=== PATIENT | female | born 1985 | race Two or more races ===

== ENCOUNTER 2024-06-28 05:57 | Emergency (ER) | payer BC, OTHER ==
[~2024-06-28] VITALS: Ht 165.1 cm; Wt 80.0 kg
--- NOTE | 2024-06-28 06:26 | ED.PDOC ---
History of Present Illness HPI Comments 39F with a history of migraines presents with 4 days of gradual onset and left- sided sharp 10/10 headache associated with multiple episodes of vomiting. Patient reports she has had headaches in the past and saw a doctor for it however they did not seem so concerned about it. States she has never had a headache this severe. Usually her headaches have resolved with the Excedrin. She denies any sick contacts photophobia phonophobia chance of sick contacts or recent travel. Chief Complaint: Headache Time Seen by MD: 06:18 Allergies: Coded Allergies: NO KNOWN ALLERGIES (Unverified , 06/28/24) All Other Systems: Reviewed and Negative Physical Exam General Appearance: Mild Distress HEENT: Normal ENT Inspection Neck: Normal Inspection Respiratory: No Respiratory Distress Cardiovascular: No Edema Breast Exam: Deferred Gastrointestinal: NOT DONE Genitalia: Deferred Pelvic: Deferred Rectal: Deferred Extremities: Normal range of motion Neurologic: Alert, No Motor Deficits, No Sensory Deficits Cerebellar Function: Normal Reflexes: NOT DONE Skin: Normal Color Lymphatic: NOT DONE Was a procedure done? Was a procedure done?: No Differential Dx Considerations may include: Migraine, CVA, ACS, tension headache X-Ray, Labs, Meds, VS Vital Signs Date Time Temp Pulse Resp B/P (MAP) Pulse Ox O2 Delivery O2 Flow Rate FiO2 06/28/24 06:35 79 13 133/89 (104) 98 06/28/24 06:35 79 13 98 Room Air* 0 21 06/28/24 05:57 98.4 74 17 136/81 (99) 97 98.4 Current Medications Medications (Trade) Dose Ordered Sig/Becca Route Start Time Stop Time Status Last Admin Sodium Chloride 1,000 ml @ 1,000 mls/hr Q1H ONCE IV 06/28/24 06:30 06/28/24 07:29 DC 06/28/24 06:37 Metoclopramide HCl (Reglan Injection) 10 mg ONCE ONCE IV 06/28/24 06:30 06/28/24 06:31 DC 06/28/24 06:38 Ketorolac Tromethamine (Toradol Injection) 15 mg ONCE ONCE IV 06/28/24 06:30 06/28/24 06:31 DC 06/28/24 06:38 Acetaminophen (Tylenol Tablet) 650 mg ONCE ONCE PO 06/28/24 06:30 06/28/24 06:31 DC 06/28/24 06:39 Dexamethasone Sodium Phosphate (Decadron Injection) 10 mg ONCE ONCE IV 06/28/24 06:30 06/28/24 06:31 DC 06/28/24 06:38 Magnesium Sulfate/ Dextrose 100 ml @ 100 mls/hr Q1H IV 06/28/24 06:30 06/28/24 08:29 DC 06/28/24 07:52 Time of 1ST Reevaluation: 06:26 Reevaluation 1ST: Unchanged Patient Education/Counseling: Diagnosis, Treatment Family Education/Counseling: No Family Present Departure 1 Departure Time of Disposition: 09:26 (Patient is feeling significantly better. She reports her migraine has resolved. We will discharge patient home with outpatient follow up) Impression: Primary Impression: Migraine Qualified Codes: G43.109 - Migraine with aura, not intractable, without status migrainosus Disposition: 01 HOME / SELF CARE / HOMELESS Condition: Stable Additional Instructions: You likely had a migraine. You received medications in the ER. You can take tylenol and motrin as needed for pain. You should stay well rested and well hydrated. It is important to follow up with your regular doctor within one week. If your symptoms worsen or you have any other concerns then please return to the ER. Discharged With: Self Critical Care Note Critical Care Time?: No Stability Stability form required: No Heart Score Heart Score: Heart Score Response (Comments) Value History N/A 0 EKG N/A 0 Age N/A 0 Risk Factors N/A 0 Troponin N/A 0 Total 0 LUIGI VÁZQUEZ MD June 28, 2024 06:26
[2024-06-28 06:35] VITALS: PULSE 79; RESP 13; O2SAT 98
[2024-06-28] MEDS: SODIUM CHLORIDE 0.9% 1,000 ML IV ONE (06:37)
[2024-06-28] MEDS: METOCLOPRAMIDE HCL 5MG/ml INJ 2ml VIAL IV ONE (06:38)
[2024-06-28] MEDS: DexAMETHasone SOD PHOS 10MG/1ML VIAL INJ IV ONE (06:38)
[2024-06-28] MEDS: KETOROLAC TROMETH 30 MG/ML 1ML VIAL IV ONE (06:38)
[2024-06-28] MEDS: ACETAMINOPHEN 325 MG TAB PO ONE (06:39)
[2024-06-28] MEDS: MAGNESIUM SULFATE 1GM/100ML 100 ML IV SCH (07:52)
[2024-06-28 09:39] VITALS: BP 141/84; PULSE 77; RESP 16; TEMP 97.5; O2SAT 96
== END 2024-06-28 09:40 | disposition home or self-care (01) ==
LOC: ER 05:57
DX: G43.909 Migraine, unspecified, not intractable, without status migrainosus (principal)
CPT/HCPCS: 96361; 96365; 96375; 99284; J1100; J1885; J2765; J3475; J7030; 96374

== ENCOUNTER 2024-06-30 09:48 | Inpatient (IN) | payer BC ==
[~2024-06-30] VITALS: Ht 165.1 cm; Wt 79.5 kg
[2024-06-30 10:24] LABS: Basophils # (auto) 0 10 ^3/uL (0-0.2); Eosinophils # (auto) 0 10 ^3/uL (0-0.8); Hemoglobin 12.4 g/dL (12.2-16.2); Mean Corpuscular Hemoglobin 25.1 pg (28.0-32.0); Monocytes # (auto) 0.4 10 ^3/uL (0-1.3); Monocytes % (auto) 8.7 % (0.0-12.0); Neutrophils # (auto) 2.6 10 ^3/uL (1.6-8.6); Red Blood Cells 4.93 10^6/uL (4.0-5.20); White Blood Cell 4.7 10^3/uL (4.4-10.8)
[2024-06-30 10:25] VITALS: PULSE 67; RESP 16; O2SAT 96
[2024-06-30 10:26] LABS: Basophils % (auto) 0.8 % (0.0-2.0); Eosinophils % (auto) 0.7 % (0.0-7.0); Hematocrit 36.6 % (36.0-46.0); Lymphocytes # (auto) 1.6 10 ^3/uL (0.4-5.4); Lymphocytes % (auto) 35.2 % (10.0-50.0); Mean Corpuscular Hgb Conc. 33.8 g/dL (32.0-36.0); Mean Corpuscular Volume 74.2 fL (80.0-100.0); Neutrophils % (auto) 54.6 % (37.0-80.0); Nucleated Red Blood Cells % 0.2 %; Platelet Count (auto) 239 10^3/uL (140-450); Red Cell Distribution Width 15.1 % (11.8-14.3)
[2024-06-30 10:36] LABS: Chloride 107 mmol/L (98-107); Potassium 4.1 mmol/L (3.5-5.1); Sodium 141 mmol/L (136-145)
[2024-06-30 10:37] LABS: Anion Gap 7 (5-15); Calcium 9.6 mg/dL (8.7-10.4); Carbon Dioxide 27 mmol/L (20-31)
[2024-06-30] MEDS: ONDANSETRON HCL 4 MG/2 ML VIAL IV ONE (10:37)
[2024-06-30] MEDS: MORPHINE SULFATE 4 MG/ML SYR/VIAL IV ONE (10:38)
[2024-06-30 10:42] LABS: Blood Urea Nitrogen 9 mg/dL (9-23); Glucose 75 mg/dL (74-106)
--- NOTE | 2024-06-30 10:48 | ED.PDOC ---
History of Present Illness HPI Comments 39 y/o F, with PMHx of DM and HTN presents to the ED for CC of headache. Patient states, that she has been experiencing a generalized headache with associated symptoms of nausea and vomiting x6days. Patient reports, that she was seen [facility]/24 and received pain medication for the headache which "took the edge off" however, once medication wore off symptoms worsened. Patient relays, that she has an appointment with a neurologist on 07/13/24 but pain is unbearable. Patient denies dizziness, chills, sweats, or body-aches. No other symptoms or modifying factors present at this time. Chief Complaint: Headache Time Seen by MD: 10:37 Primary Care Provider: RENÉE Shaw Notes: Nurses Notes, Medications, Allergies Allergies: Coded Allergies: NO KNOWN ALLERGIES (Unverified , 06/28/24) Information Source: Patient Mode of Arrival: Wheelchair Severity: Moderate Timing: Days Duration: Since onset Prehospital treatment: None Past Medical History PAST MEDICAL HISTORY: DM, HTN Surgical History: Surgical History (Other): RIGHT SHOULDER, GASTRIC BYPASS [employer] History: Unknown Family History Family History: Unknown Social History Smoker: Non-Smoker Alcohol: Denies ETOH Use Drugs: Denies Drug Use Lives In: Home Constitutional: denies: chills, diaphoresis, fatigue, fever, malaise, sweats, weakness, others EENTM: denies: blurred vision, double vision, ear bleeding, ear discharge, ear drainage, ear pain, ear ringing, eye pain, eye redness, hearing loss, mouth pain, mouth swelling, nasal discharge, nose bleeding, nose congestion, nose pain, photophobia, tearing, throat pain, throat swelling, voice changes, others Respiratory: denies: cough, hemoptysis, orthopnea, SOB at rest, shortness of breath, SOB with excertion, stridor, wheezing, others Cardiovascular: denies: chest pain, dizzy spells, diaphoresis, Dyspnea on exertion, edema, irregular heart beat, left arm pain, lightheadedness, palpitations, PND, syncope, others Gastrointestinal: reports: nausea, vomiting; denies: abdomen distended, abdominal pain, blood streaked bowels, constipated, diarrhea, dysphagia, difficulty swallowing, hematemesis, melena, poor appetite, poor fluid intake, rectal bleeding, rectal pain, others Genitourinary: denies: abnormal vagina bleeding, burning, dyspareunia, dysuria, flank pain, frequency, hematuria, incontinence, pain, , vagina discharge, urgency, others Neurological: reports: headache; denies: dizziness, fainting, left sided numbness, left sided weakness, numbness, paresthesia, pre-existing deficit, right sided numbness, right sided weakness, seizure, speech problems, tingling, tremors, weakness, others Musculoskeletal: denies: back pain, gout, joint pain, joint swelling, muscle pain, muscle stiffness, neck pain, others Integumetry: denies: bruises, change in color, change in hair/nails, dryness, laceration, lesions, lumps, rash, wounds, others Allergic/Immunocompromised: denies: Difficulty Healing, Frequent Infections, Hives, Itching, others Hematologic/Lymphatic: denies: anemia, blood clots, easy bleeding, easy bruising, swollen glands, others Endocrine: denies: excessive hunger, excessive sweating, excessive thirst, excessive urination, flushing, intolerance to cold, intolerance to heat, unexplained weight gain, unexplained weight loss, others Psychiatric: denies: anxiety, bipolar disorder, depression, hopeless, panic disorder, schizophrenia, sleepless, suicidal, others All Other Systems: Reviewed and Negative Physical Exam General Appearance: Moderate Distress HEENT: Normal ENT Inspection, Pharynx Normal, TMs Normal Neck: Full Range of Motion, Non-Tender, Normal, Normal Inspection Respiratory: Chest Non-Tender, Lungs Clear, No Accessory Muscle Use, No Respiratory Distress, Normal Breath Sounds Cardiovascular: No Edema, No JVD, No Murmur, No Gallop, Normal Peripheral Pulses, Regular Rate/Rhythm Breast Exam: Deferred Gastrointestinal: No Organomegaly, Non Tender, No Pulsatile Mass, Normal Bowel Sounds, Soft Genitalia: Deferred Pelvic: Deferred Rectal: Deferred Extremities: No calf tenderness, Normal capillary refill, Normal inspection, Normal range of motion, Non-tender, No pedal edema Musculoskeletal : Apperance: Normal Neurologic: Alert, No Motor Deficits, No Sensory Deficits Cerebellar Function: NOT DONE Reflexes: NOT DONE Skin: Dry, Normal Color, Warm Peripheral Pulses: 3+ Radial (R), 3+ Radial (L) Lymphatic: No Adenopathy Was a procedure done? Was a procedure done?: No Differential Dx Considerations may include: MIGRAINE HEADACHE, CLUSTER HEADACHE, ELECTROLYTE IMBALANCE X-Ray, Labs, Meds, VS Vital Signs Date Time Temp Pulse Resp B/P (MAP) Pulse Ox O2 Delivery O2 Flow Rate FiO2 06/30/24 11:03 98.0 61 16 141/78 (99) 98 98.0 06/30/24 10:38 67 16 126/83 06/30/24 10:25 98.0 67 16 126/83 (97) 96 98.0 06/30/24 10:25 67 16 96 Room Air* 0 21 06/30/24 10:18 97.8 72 17 138/89 (105) 98 97.8 Lab Test 06/30/24 10:40 06/30/24 10:17 Range/Units Urine Color Light-yellow Yellow Urine Clarity Clear Clear Urine pH 7.0 5.0-9.0 Urine Specific [place] 1.019 1.001-1.035 Urine Protein Negative Negative Urine Ketones Negative Negative Urine Blood Negative Negative /uL Urine Nitrite Negative Negative Urine Bilirubin Negative Negative Urine Urobilinogen 2 H Negative mg/dL Urine Leukocyte Esterase Negative Negative /uL Urine RBC 2 0 - 4 /hpf Urine Microscopic WBC 1 0-5 /HPF Urine Squamous Epithelial Cells Few <5 /hpf Urine Bacteria Few H None Seen /hpf Urine Glucose Normal Normal mg/dL White Blood Count 4.7 4.4-10.8 10^3/uL Red Blood Count 4.93 4.0-5.20 10^6/uL Hemoglobin 12.4 12.2-16.2 g/dL Hematocrit 36.6 36.0-46.0 % Mean Corpuscular Volume 74.2 L 80.0-100.0 fL Mean Corpuscular Hemoglobin 25.1 L 28.0-32.0 pg Mean Corpuscular Hemoglobin Concent 33.8 32.0-36.0 g/dL Red Cell Distribution Width 15.1 H 11.8-14.3 % Platelet Count 239 140-450 10^3/uL Mean Platelet Volume 7.6 6.9-10.8 fL Neutrophils (%) (Auto) 54.6 37.0-80.0 % Lymphocytes (%) (Auto) 35.2 10.0-50.0 % Monocytes (%) (Auto) 8.7 0.0-12.0 % Eosinophils (%) (Auto) 0.7 0.0-7.0 % Basophils (%) (Auto) 0.8 0.0-2.0 % Neutrophils # (Auto) 2.6 1.6-8.6 10 ^3/uL Lymphocytes # (Auto) 1.6 0.4-5.4 10 ^3/uL Monocytes # (Auto) 0.4 0-1.3 10 ^3/uL Eosinophils # (Auto) 0 0-0.8 10 ^3/uL Basophils # (Auto) 0 0-0.2 10 ^3/uL Nucleated Red Blood Cells 0.2 % Sodium Level 141 136-145 mmol/L Potassium Level 4.1 3.5-5.1 mmol/L Chloride Level 107 98-107 mmol/L Carbon Dioxide Level 27 20-31 mmol/L Anion Gap 7 5-15 Blood Urea Nitrogen 9 9-23 mg/dL Creatinine 0.69 0.550-1.02 mg/dL Glomerular Filtration Rate Calc 112 >90 mL/min BUN/Creatinine Ratio 13.0 10.0-20.0 Serum Glucose 75 74-106 mg/dL Calcium Level 9.6 8.7-10.4 mg/dL Current Medications Medications (Trade) Dose Ordered Sig/Becca Route Start Time Stop Time Status Last Admin Morphine Sulfate 4 mg ONCE ONCE IV 06/30/24 10:15 06/30/24 10:16 DC 06/30/24 10:38 Ondansetron HCl (Zofran) 4 mg ONCE ONCE IV 06/30/24 10:15 06/30/24 10:16 DC 06/30/24 10:37 [place] [address] Ph: [phone] DIAGNOSTIC IMAGING Diagnostic Imaging Report : [id number] Signed PATIENT: LENA LEONE ACCT: [id number] UNIT: [id number] : 1985 LOC: ER ROOM / BED: / AGE / SEX: 39 / F ADM STATUS: REG ER SERVICE 1003 ORDERING PHYSICIAN: PHILLIP COMBS MD PROCEDURE(s): HWOCT - HEAD WITHOUT CONTRAST REASON: headache ORDER NUMBER(s): [id number], ACCESSION NUMBER(s): [id number] EXAM: CT HEAD WITHOUT CONTRAST INDICATION: headache TECHNIQUE: CT of the head without intravenous contrast. Radiation Dose Information: CT Dose: CTDI volume is 53.06 mGy. Dose-length product is 850.66 mGy*cm The dose indicators for CT are the volume Computed Tomography (CT) Dose Index (CTDIvol) and the Dose Length Product (DLP), and are measured in units of mGy and mGy-cm, respectively. These indicators are not patient dose, but values generated from the CT scanner acquisition factors. The report includes radiation exposure data for exposures received during this examination. COMPARISON: None FINDINGS: There is no evidence of acute intracranial hemorrhage, extra-axial collection, mass effect, midline shift, herniation or hydrocephalus. The ventricles, sulci and cisterns are age appropriate. The anglin-white differentiation is intact. Patchy periventricular and subcortical white matter hypoattenuation is nonspecific but may be related to small vessel ischemic disease. The visualized paranasal sinuses and mastoid air cells are clear. The surrounding soft tissues and osseous structures are unremarkable. IMPRESSION: No acute intracranial abnormality. ATED BY: LILA MONCADA MD DICTATED DATE/TIME: 06/30/24 1054 SIGNED BY: LILA MONCADA MD SIGNED DATE/TIME: 06/30/24 1054 CC: Patient alert. Complaining of headache. Vitals stable. Was seen here with the same symptom few days ago. Continues to have headache. CT of the head reviewed does not show any acute changes. Was given morphine. Was given Zofran. Explained to the patient she possibly need MRI. Neurology consultation. Reviewed her previous visit. Continue monitoring. Time of 1ST Reevaluation: 11:07 Reevaluation 1ST: Improved Patient Education/Counseling: Diagnosis, Treatment Family Education/Counseling: No Family Present Departure 1 Departure Time of Disposition: 10:59 Impression: Primary Impression: Migraine Qualified Codes: G43.901 - Migraine, unspecified, not intractable, with status migrainosus Disposition: ADMITTED INPATIENT Admit to: Med Surg Condition: Guarded Critical Care Note Critical Care Time?: No Stability Stability form required: No Heart Score Heart Score: Heart Score Response (Comments) Value History N/A 0 EKG N/A 0 Age N/A 0 Risk Factors N/A 0 Troponin N/A 0 Total 0 I personally scribed for PHILLIP COMBS MD ([email or web address]) on 06/30/24 at 10:48. Electronically submitted by Jocelyn Leyva ([email or web address]). I personally scribed for PHILLIP COMBS MD ([email or web address]) on 06/30/24 at 11:24. Electronically submitted by Jocelyn Leyva ([email or web address]). PHILLIP COMBS MD June 30, 2024 10:48
--- NOTE | 2024-06-30 10:56 | DVH ---
EXAM: CT HEAD WITHOUT CONTRAST INDICATION: headache TECHNIQUE: CT of the head without intravenous contrast. Radiation Dose Information: CT Dose: CTDI volume is 53.06 mGy. Dose-length product is 850.66 mGy*cm The dose indicators for CT are the volume Computed Tomography (CT) Dose Index (CTDIvol) and the Dose Length Product (DLP), and are measured in units of mGy and mGy-cm, respectively. These indicators are not patient dose, but values generated from the CT scanner acquisition factors. The report includes radiation exposure data for exposures received during this examination. COMPARISON: None FINDINGS: There is no evidence of acute intracranial hemorrhage, extra-axial collection, mass effect, midline s hift, herniation or hydrocephalus. The ventricles, sulci and cisterns are age appropriate. The anglin-white differentiation is intact. Patchy periventricular and subcortical white matter hypoattenuation is nonspecific but may be related to small vessel ischemic disease. The visualized paranasal sinuses and mastoid air cells are clear. The surrounding soft tissues and osseous structures are unremarkable. IMPRESSION: No acute intracranial abnormality.
[2024-06-30 11:20] LABS: Urine Bacteria FEW /hpf (None Seen); Urine Blood Negative /uL (Negative); Urine Clarity Clear (Clear); Urine Color Light-Yellow (Yellow); Urine Protein, UAD Negative (Negative); Urine Specific Gravity 1.019 (1.001-1.035); Urine Squamous Epithelial Cell FEW /hpf (<5); Urine Urobilinogen 2 mg/dL (Negative); Urine WBC 1 /HPF (0-5)
[2024-06-30] MEDS ORDERED: SERT-160 PO (12:27)
[2024-06-30] MEDS ORDERED: OMEP1CAP70 PO (12:27)
[2024-06-30] MEDS ORDERED: ROSU20TA56 PO (12:27)
[2024-06-30] MEDS ORDERED: DEXTROSE (50%) 50ML SYRG IV PRN (12:30)
[2024-06-30] MEDS ORDERED: ACETAMINOPHEN 325 MG TAB PO PRN (12:30)
--- NOTE | 2024-06-30 12:35 | DVHHP2 ---
History of Present Illness Reason for Visit: Headache History of Present Illness Kathy Munoz is a 39-year-old female with past medical history of hypertension, diabetes, , right shoulder replacement, and gastric bypass who presents to the ED with intractable headache with nausea and vomiting x6 days. Patient states that she woke up with excruciating pain 10/10 on the left parietal side and constant in nature. She states that has been ongoing day and night without any relief. She did report that she took Excedrin, Tylenol, [place], and morphine with no success. She also reports that she was in the urgent care took Toradol with to our relief that was minimal and the pain restarted and continued on. Patient denies any recent trauma or injury, recent sick contacts, recent travels, recent ingestion of spoiled food, chest pain, shortness of breath, fever, chills, lightheadedness, weakness, dizziness, abdominal pain, nausea, vomiting, or diarrhea. Patient reports that she vapes, uses marijuana, and drinks occasionally. Angel is at the chair side. Cardiovascular: HTN Endocrine: Diabetes Past Surgical History: , Other (Right shoulder replacement and gastric bypass) Family History: Other (Mom with heart disease and diabetes, and dad ) Smoke: Quit (Vapes) ALCOHOL: occassional Drugs: Marijuana Lives: with Family Domestic Violence: Neg Review of Systems Constitutional: Yes: Other (Headache) Gastrointestinal: Nausea, Vomiting Allergies: Coded Allergies: NO KNOWN ALLERGIES (Unverified , 06/28/24) Medications Current Medications Medications Dose Ordered Sig/Becca Route Start Time Stop Time Status Last Admin Dose Admin Diagnostic Test (Pha) 1 strip ACHS 06/30/24 17:00 Insulin Human Regular ACHS SC 06/30/24 17:00 Dextrose 50 ml UD PRN IV 06/30/24 12:30 Acetaminophen/ Hydrocodone Bitart 1 tab Q4HP PRN PO 06/30/24 12:30 Ondansetron HCl 4 mg Q4HP PRN IV 06/30/24 12:30 Acetaminophen 650 mg Q6HP PRN PO 06/30/24 12:30 Morphine Sulfate 2 mg Q4HPRN PRN IV 06/30/24 12:30 UNV Exam Vital Signs Vital Signs Date Time Temp Pulse Resp B/P (MAP) Pulse Ox O2 Delivery O2 Flow Rate FiO2 06/30/24 11:03 98.0 61 16 141/78 (99) 98 98.0 06/30/24 10:25 Room Air* 0 21 General Appearance: Alert, Oriented X3, Cooperative, No acute distress HEENT: Atraumatic, PERRLA, EOMI, Mucous membr. moist/pink Respiratory: Clear to auscultation, Normal air movement Cardiovascular: Regular rate, Normal S1, Normal S2 Abdominal: Normal bowel sounds, Soft Extremities: No clubbing, No cyanosis, No edema, Normal pulses Skin: No significant lesion Neuro: Normal speech, Strength at 5/5 X4 ext, Normal tone, Sensation intact Psych/Mental Status: Mental status NL, Mood NL Labs/Xrays Labs Test 06/30/24 10:40 06/30/24 10:17 Range/Units Urine Color Light-yellow Yellow Urine Clarity Clear Clear Urine pH 7.0 5.0-9.0 Urine Specific [place] 1.019 1.001-1.035 Urine Protein Negative Negative Urine Ketones Negative Negative Urine Blood Negative Negative /uL Urine Nitrite Negative Negative Urine Bilirubin Negative Negative Urine Urobilinogen 2 H Negative mg/dL Urine Leukocyte Esterase Negative Negative /uL Urine RBC 2 0 - 4 /hpf Urine Microscopic WBC 1 0-5 /HPF Urine Squamous Epithelial Cells Few <5 /hpf Urine Bacteria Few H None Seen /hpf Urine Glucose Normal Normal mg/dL White Blood Count 4.7 4.4-10.8 10^3/uL Red Blood Count 4.93 4.0-5.20 10^6/uL Hemoglobin 12.4 12.2-16.2 g/dL Hematocrit 36.6 36.0-46.0 % Mean Corpuscular Volume 74.2 L 80.0-100.0 fL Mean Corpuscular Hemoglobin 25.1 L 28.0-32.0 pg Mean Corpuscular Hemoglobin Concent 33.8 32.0-36.0 g/dL Red Cell Distribution Width 15.1 H 11.8-14.3 % Platelet Count 239 140-450 10^3/uL Mean Platelet Volume 7.6 6.9-10.8 fL Neutrophils (%) (Auto) 54.6 37.0-80.0 % Lymphocytes (%) (Auto) 35.2 10.0-50.0 % Monocytes (%) (Auto) 8.7 0.0-12.0 % Eosinophils (%) (Auto) 0.7 0.0-7.0 % Basophils (%) (Auto) 0.8 0.0-2.0 % Neutrophils # (Auto) 2.6 1.6-8.6 10 ^3/uL Lymphocytes # (Auto) 1.6 0.4-5.4 10 ^3/uL Monocytes # (Auto) 0.4 0-1.3 10 ^3/uL Eosinophils # (Auto) 0 0-0.8 10 ^3/uL Basophils # (Auto) 0 0-0.2 10 ^3/uL Nucleated Red Blood Cells 0.2 % Sodium Level 141 136-145 mmol/L Potassium Level 4.1 3.5-5.1 mmol/L Chloride Level 107 98-107 mmol/L Carbon Dioxide Level 27 20-31 mmol/L Anion Gap 7 5-15 Blood Urea Nitrogen 9 9-23 mg/dL Creatinine 0.69 0.550-1.02 mg/dL Glomerular Filtration Rate Calc 112 >90 mL/min BUN/Creatinine Ratio 13.0 10.0-20.0 Serum Glucose 75 74-106 mg/dL Calcium Level 9.6 8.7-10.4 mg/dL EXAM: CT HEAD WITHOUT CONTRAST INDICATION: headache TECHNIQUE: CT of the head without intravenous contrast. Radiation Dose Information: CT Dose: CTDI volume is 53.06 mGy. Dose-length product is 850.66 mGy*cm The dose indicators for CT are the volume Computed Tomography (CT) Dose Index (CTDIvol) and the Dose Length Product (DLP), and are measured in units of mGy and mGy-cm, respectively. These indicators are not patient dose, but values generated from the CT scanner acquisition factors. The report includes radiation exposure data for exposures received during this examination. COMPARISON: None FINDINGS: There is no evidence of acute intracranial hemorrhage, extra-axial collection, mass effect, midline shift, herniation or hydrocephalus. The ventricles, sulci and cisterns are age appropriate. The anglin-white differentiation is intact. Patchy periventricular and subcortical white matter hypoattenuation is nonspecific but may be related to small vessel ischemic disease. The visualized paranasal sinuses and mastoid air cells are clear. The surrounding soft tissues and osseous structures are unremarkable. IMPRESSION: No acute intracranial abnormality. Assessment/Plan Assessment/Plan Assessment Intractable headache with nausea and vomiting Marijuana use Alcohol use Substance use History of hypertension History of diabetes type 2 History of History of right shoulder replacement History of gastric bypass Plan Admit to med surge UA Antiemetics Pain management CT head noted Hemoglobin A1c ISS and Accu-Cheks Diet Triptan ordered Mag ordered Home medications reconciled DVT prophylaxis-not indicated patient ambulating PUD prophylaxis-not indicated no history of GERD or GI bleed Discussed plan of care with patient, patient's spouse, and nurse Counseled patient on cessation of marijuana use, alcohol use and substance use Neurology consult Plan discussed with: Patient My Orders Orders - SAMIR BENNETT Procedure Category Date Status Time Hemoglobin A1c LAB 06/30/24 Logged 12:22 Glucose Blood PHA 06/30/24 In Process (Accu-Chek Comfort 17:00 Insulin R (Human) PHA 06/30/24 In Process (Insulin R) 17:00 Dextrose 50% Syringe PHA 06/30/24 In Process 12:30 Admit ADMIT 06/30/24 Transmitted 12:22 Allergies ISMAEL 06/30/24 In Process 12:22 Code Status CODE 06/30/24 Transmitted 12:22 Hydrocodone-Acet PHA 06/30/24 In Process 5/325mg Tab ([place] 12:30 Ondansetron Hcl PHA 06/30/24 In Process (Zofran) 12:30 Complete Blood Count LAB 07/01/24 Verified 04:00 Comprehensive LAB 07/01/24 Verified Metabolic Panel 04:00 Cardiac DIET 06/30/24 Transmitted Diet-2gna,Lofat,Lochol Lunch Acetaminophen Tablet PHA 06/30/24 In Process (Tylenol Tablet) 12:30 Morphine Sulfate PHA 06/30/24 Logged Injection 12:30 Sumatriptan Succinate PHA 06/30/24 Logged Tablet (Imitrex Ta 12:30 * Neurology Consult CONS 06/30/24 Transmitted 12:25 Magnesium Sánchez PHA 06/30/24 Transmitted 12:30 Magnesium LAB 06/30/24 Logged 12:26 Date of Service: June 30, 2024 Billing Provider: SAMIR BENNETT Common Visit Codes: [id number] INP/OBS CARE (HIGH) SAMIR BENNETT June 30, 2024 12:35
[2024-06-30 13:32] VITALS: PULSE 65; RESP 18; O2SAT 98
[2024-06-30 13:36] VITALS: TEMP 98
[2024-06-30] MEDS: amLODIPine BESYLATE 5 MG TAB PO SCH (14:07)
[2024-06-30] MEDS: SUMAtriptan SUCCINATE 25 MG TAB PO ONE (14:48)
[2024-06-30] MEDS: MAGNESIUM SULFATE 1GM/100ML 100 ML IV ONE (14:48)
[2024-06-30] MEDS: ONDANSETRON HCL 4 MG/2 ML VIAL IV PRN (15:54)
[2024-06-30] MEDS: HYDROcodone-ACET 5/325MG TAB PO PRN (15:54)
[2024-06-30 17:00] VITALS: BP 113/74; PULSE 65; RESP 18; TEMP 98.1; O2SAT 98
[2024-06-30] MEDS: InsuLIN REG 1unit/0.01ml Soln (100units/ml) SC SCH (17:00)
[2024-06-30] MEDS: ACCU-CHEK COMFORT CURVE STRIP VI SCH (17:26)
[2024-06-30] MEDS: KETOROLAC TROMETH 30 MG/ML 1ML VIAL IV ONE (19:03)
[2024-06-30] MEDS: MORPHINE SULFATE INJ 2 MG/ml SYRG IV PRN (20:04)
[2024-06-30 21:00] VITALS: BP 110/64; PULSE 63; RESP 17; TEMP 97.3; O2SAT 97
[2024-06-30] MEDS: SERTRALINE HCL 50 MG TAB PO SCH (21:42)
[2024-07-01] VITALS (7 sets, daily range): BP systolic 103–147; BP diastolic 66–97; PULSE 66–80; RESP 16–21; TEMP 97.3–98.1; O2SAT 83–98
[2024-07-01 07:56] LABS: Basophils # (auto) 0 10 ^3/uL (0-0.2); Eosinophils # (auto) 0 10 ^3/uL (0-0.8); Mean Corpuscular Hgb Conc. 33.4 g/dL (32.0-36.0); Mean Corpuscular Volume 74.6 fL (80.0-100.0); Monocytes # (auto) 0.5 10 ^3/uL (0-1.3); White Blood Cell 4.9 10^3/uL (4.4-10.8)
[2024-07-01 07:58] LABS: Basophils % (auto) 0.4 % (0.0-2.0); Eosinophils % (auto) 0.8 % (0.0-7.0); Hematocrit 35.7 % (36.0-46.0); Hemoglobin 11.9 g/dL (12.2-16.2); Lymphocytes % (auto) 19.7 % (10.0-50.0); Mean Corpuscular Hemoglobin 24.9 pg (28.0-32.0); Monocytes % (auto) 10.1 % (0.0-12.0); Neutrophils # (auto) 3.4 10 ^3/uL (1.6-8.6); Nucleated Red Blood Cells % 0.2 %; Platelet Count (auto) 211 10^3/uL (140-450); Red Blood Cells 4.79 10^6/uL (4.0-5.20); Red Cell Distribution Width 15.3 % (11.8-14.3)
[2024-07-01 08:23] LABS: Alanine Aminotransferase 20 U/L (7-40); Albumin 4.1 g/dL (3.2-4.8); Alkaline Phosphatase 59 U/L (46-116); Anion Gap 7 (5-15); Aspartate Aminotransferase 16 U/L (13-40); BUN/Creatinine Ratio 13.9 (10.0-20.0); Bilirubin, Total 0.7 mg/dL (0.2-1.0); Blood Urea Nitrogen 10 mg/dL (9-23); Calcium 9.7 mg/dL (8.7-10.4); Carbon Dioxide 29 mmol/L (20-31); Chloride 105 mmol/L (98-107); Glucose 86 mg/dL (74-106); Potassium 4.5 mmol/L (3.5-5.1); Sodium 141 mmol/L (136-145); Total Protein 6.5 g/dL (5.7-8.2)
[2024-07-01] MEDS: ATORVASTATIN 20 MG TAB PO SCH (10:11)
[2024-07-01] MEDS: PANTOPRAZOLE 40 MG TAB PO SCH (10:11)
--- NOTE | 2024-07-01 12:46 | DVHPN2 ---
Reviewed: Care Plan, H&P, Labs, Medications, Previous Orders, Radiology Changes from previous H/P or p: No Changes Gastrointestinal: Nausea, Vomiting Objective Vitals Vital Signs Date Time Temp Pulse Resp B/P (MAP) Pulse Ox O2 Delivery O2 Flow Rate FiO2 07/01/24 10:08 80 16 109/71 07/01/24 08:39 97.8 98 97.8 06/30/24 20:00 Room Air* 0 21 Intake/Output Intake and Output 07/01/24 07:00 Intake Total 1140 ml Balance 1140 ml Intake Oral 1040 ml IV Total 100 ml # Voids 10 Medications Current Medications Medications Dose Ordered Sig/Becca Route Start Time Stop Time Status Last Admin Dose Admin Diagnostic Test (Pha) 1 strip ACHS 06/30/24 17:00 07/01/24 07:27 1 STRIP Insulin Human Regular ACHS SC 06/30/24 17:00 Dextrose 50 ml UD PRN IV 06/30/24 12:30 Acetaminophen/ Hydrocodone Bitart 1 tab Q4HP PRN PO 06/30/24 12:30 06/30/24 15:54 1 TAB Ondansetron HCl 4 mg Q4HP PRN IV 06/30/24 12:30 07/01/24 10:03 4 MG Acetaminophen 650 mg Q6HP PRN PO 06/30/24 12:30 Morphine Sulfate 2 mg Q4HPRN PRN IV 06/30/24 12:30 07/01/24 10:08 2 MG Amlodipine Besylate 5 mg DAILY PO 06/30/24 12:30 06/30/24 14:07 5 MG Pantoprazole Sodium 40 mg DAILY PO 07/01/24 10:00 07/01/24 10:11 40 MG Atorvastatin Calcium 40 mg DAILY PO 07/01/24 10:00 07/01/24 10:11 40 MG Sertraline HCl 100 mg BID PO 06/30/24 22:00 07/01/24 10:10 100 MG Laboratory Results Laboratory Tests 07/01/24 06:52 Chemistry Test 07/01/24 06:52 Albumin 4.1 g/dL (3.2-4.8) Calcium Level 9.7 mg/dL (8.7-10.4) Total Protein 6.5 g/dL (5.7-8.2) LFT Test 07/01/24 06:52 Alanine Aminotransferase (ALT) 20 U/L (7-40) Alkaline Phosphatase 59 U/L (46-116) Aspartate Amino Transferase (AST) 16 U/L (13-40) Total Bilirubin 0.7 mg/dL (0.2-1.0) Urinalysis Test 06/30/24 10:40 Urine Color Light-yellow (Yellow) Urine Clarity Clear (Clear) Urine pH 7.0 (5.0-9.0) Urine Specific [place] 1.019 (1.001-1.035) Urine Protein Negative (Negative) Urine Ketones Negative (Negative) Urine Blood Negative /uL (Negative) Urine Nitrite Negative (Negative) Urine Bilirubin Negative (Negative) Urine Urobilinogen 2 mg/dL (Negative) H Urine Leukocyte Esterase Negative /uL (Negative) Urine RBC 2 /hpf (0 - 4) Urine Microscopic WBC 1 /HPF (0-5) Urine Squamous Epithelial Cells Few /hpf (<5) Urine Bacteria Few /hpf (None Seen) H Urine Glucose Normal mg/dL (Normal) Labs and/or images reviewed: Labs reviewed by me, Image(s) reviewed by me Assessment/Plan Assessment/Plan Intractable headache with nausea and vomiting : Zofran morphine Marijuana use Alcohol use Substance use Hypertension Diabetes History of gastric bypass Plan discussed with: Patient Date of Service: July 01, 2024 Billing Provider: DAVI BORRERO MD Common Visit Codes: [id number] INP/OBS CARE(HIGH) DAVI BORRERO MD July 01, 2024 12:46
[2024-07-01 14:22] LABS: Erythrocyte Sedimentation Rate 3 mm/hr (0-20)
[2024-07-01] MEDS: OXYCODONE W/ ACETAMINOPHEN 5/325MG TABLET PO PRN (15:58)
--- NOTE | 2024-07-01 20:03 | DVHINCON2 ---
Date of service: July 01, [address] Sewell Reason for Consultation Migraine for six days History of Present Illness Ms. Munoz is a 39 years old right-handed female with a history of hypertension, diabetes, obesity, she came to the [facility] on 06/30/2024 with a chief company of headache. At this time, she is alert and fully oriented, she provides the following history She denies a history of headache/migraine headache or family history of headache, but for six days, she was intense, 10/10, left-sided throbbing hea dache with associated nausea, vomiting, sensitivity to lights and noise, but she denies associated double vision, vertigo, or focal weakness. He tried Tylenol and other pain medication with poor result, morphine failed as well, and finally she noticed Imitrex and Percocet control headache Plasma alcohol home, 07/01/2024: 5.5 Urinalysis, 06/30: WBC: 1, urine leukocyte esterase: Negative CBC, 06/30/2024: Unremarkable ESR, 07/12/2023 she came three CMP, 07/11/2024: Unremarkable CT head, : No acute intracranial abnormality Past Medical History Hypertension, diabetes, obesity, she does not snore Past Surgical History , gastric bypass, right shoulder sensory Family History: FH: cirrhosis G8 FATHER FH: heart disease G8 MOTHER Hypertension G8 MOTHER Family History Hypertension, diabetes, heart disease, no headache Social History She is not a tobacco smoker, she was no history of alcohol or recreational substance abuse Allergies: Coded Allergies: NO KNOWN ALLERGIES (Unverified , 06/28/24) Home Meds Reported Medications Omeprazole (Omeprazole Dr) 20 Mg Cap, 1 CAP PO DAILY 06/30/24 Rosuvastatin Calcium (Rosuvastatin Calcium) 20 Mg Tab, 1 TAB PO DAILY 06/30/24 Sertraline Hcl (Sertraline Hcl) 100 Mg Tab, 1 TAB PO BID 06/30/24 Current Medications Current Medications Medications (Trade) Dose Ordered Sig/Becca Route PRN Reason Start Time Stop Time Status Last Admin Pantoprazole Sodium (Protonix Tablet) 40 mg DAILY PO 07/01/24 10:00 07/01/24 10:11 Atorvastatin Calcium (Lipitor) 40 mg DAILY PO 07/01/24 10:00 07/01/24 10:11 Sertraline HCl (Zoloft) 100 mg BID PO 06/30/24 22:00 07/01/24 10:10 Oxycodone/ Acetaminophen (Percocet 5/ 325MG Tablet) 1 tab Q6HP PRN PO MODERATE PAIN (4-6 PAIN SCALE) 07/01/24 13:00 07/01/24 15:58 Review of Systems As above, the other systems are negative Vital Signs Vital Signs Date Time Temp Pulse Resp B/P (MAP) Pulse Ox O2 Delivery O2 Flow Rate FiO2 07/01/24 16:00 98.1 80 20 125/73 (90) 96 98.1 07/01/24 08:00 Room Air* 0 21 Physical Exam GENERAL EXAM: General: the patient is well developed and nourished. No acute distress. HEENT: Normocephalic, neck is supple, no carotid bruits. No mass RESPIRATORY: Normal respiratory effort with symmetrical lung expansion. Lungs clear to auscultation. CARDIOVASCULAR: Regular rate and rhythm with no murmurs. S1, S2. ABDOMEN: Soft, nontender, normal bowel sound NEUROLOGICAL: MENTAL STATUS: Awake and alert. Oriented to person, place, time and general circumstances. Able to give personal history. SPEECH, LANGUAGE, HIGHER CORTICAL FUNCTION: no aphasia or dysathria. CRANIAL NERVES: #2: Intact visual mckeon to confrontation. The optic discs were sharp. #3,4,6: Pupils are equal, round and reactive. EOMs full and conjugate. No nystagmus. #5: Facial sensation intact in all three divisions bilaterally. Mandibular strength intact. #7: Facial muscles symmetrical and strength intact. #8: Hearing grossly normal to voice. #9,10: Uvula and soft palate rise in the midline. Swallow and voice are normal. #11: Trapezius and sternomastoid strength intact bilaterally. #12: Tongue midline. No fasciculations or atrophy. SENSATION: Sensation to touch and pinprick is normal. MOTOR: Normal tone in the upper and lower extremity. Normal muscle bulk. No fasciculations. No abnormal movements or posturing. Muscle strength of the major groups in the upper extremities is 5/5. Muscle strength of the major groups in the lower extremities is 5/5. REFLEXES: Deep tendon reflexes normal and symmetrical. No pathological reflexes. CEREBELLAR/COORDINATION: Finger to nose and heel to roblero are normal bilaterally. GAIT/STATION: deferred Labs/Diagnostic Data Labs Test 07/01/24 18:13 07/01/24 06:52 06/30/24 10:40 06/30/24 10:17 Range/Units POC Glucose 75 70-106 mg/dl White Blood Count 4.9 4.4-10.8 10^3/uL Red Blood Count 4.79 4.0-5.20 10^6/uL Hemoglobin 11.9 L 12.2-16.2 g/dL Hematocrit 35.7 L 36.0-46.0 % Mean Corpuscular Volume 74.6 L 80.0-100.0 fL Mean Corpuscular Hemoglobin 24.9 L 28.0-32.0 pg Mean Corpuscular Hemoglobin Concent 33.4 32.0-36.0 g/dL Red Cell Distribution Width 15.3 H 11.8-14.3 % Platelet Count 211 140-450 10^3/uL Mean Platelet Volume 7.8 6.9-10.8 fL Neutrophils (%) (Auto) 69.0 37.0-80.0 % Lymphocytes (%) (Auto) 19.7 10.0-50.0 % Monocytes (%) (Auto) 10.1 0.0-12.0 % Eosinophils (%) (Auto) 0.8 0.0-7.0 % Basophils (%) (Auto) 0.4 0.0-2.0 % Neutrophils # (Auto) 3.4 1.6-8.6 10 ^3/uL Lymphocytes # (Auto) 1.0 0.4-5.4 10 ^3/uL Monocytes # (Auto) 0.5 0-1.3 10 ^3/uL Eosinophils # (Auto) 0 0-0.8 10 ^3/uL Basophils # (Auto) 0 0-0.2 10 ^3/uL Nucleated Red Blood Cells 0.2 % Erythrocyte Sedimentation Rate 3 0-20 mm/hr Sodium Level 141 136-145 mmol/L Potassium Level 4.5 3.5-5.1 mmol/L Chloride Level 105 98-107 mmol/L Carbon Dioxide Level 29 20-31 mmol/L Anion Gap 7 5-15 Blood Urea Nitrogen 10 9-23 mg/dL Creatinine 0.72 0.550-1.02 mg/dL Glomerular Filtration Rate Calc 108 >90 mL/min BUN/Creatinine Ratio 13.9 10.0-20.0 Serum Glucose 86 74-106 mg/dL Calcium Level 9.7 8.7-10.4 mg/dL Total Bilirubin 0.7 0.2-1.0 mg/dL Aspartate Amino Transferase (AST) 16 13-40 U/L Alanine Aminotransferase (ALT) 20 7-40 U/L Alkaline Phosphatase 59 46-116 U/L Total Protein 6.5 5.7-8.2 g/dL Albumin 4.1 3.2-4.8 g/dL Plasma/Serum Blood Alcohol 5.5 <10 mg/dL Urine Color Light-yellow Yellow Urine Clarity Clear Clear Urine pH 7.0 5.0-9.0 Urine Specific [place] 1.019 1.001-1.035 Urine Protein Negative Negative Urine Ketones Negative Negative Urine Blood Negative Negative /uL Urine Nitrite Negative Negative Urine Bilirubin Negative Negative Urine Urobilinogen 2 H Negative mg/dL Urine Leukocyte Esterase Negative Negative /uL Urine RBC 2 0 - 4 /hpf Urine Microscopic WBC 1 0-5 /HPF Urine Squamous Epithelial Cells Few <5 /hpf Urine Bacteria Few H None Seen /hpf Urine Glucose Normal Normal mg/dL Hemoglobin A1c 5.1 <5.7 % A1C Magnesium Level 2.0 1.6-2.6 mg/dL Assessment New onset headache with migraine features, under control now Plan/Recommendation Monitoring Supportive treatment Telemetry Current pain management Good hydration Regular meal and sleeps schedule Avoid triggers Avoid regular pain medication for acute headache control This medical document was created using an electronic medical record system with [employer] dictation system. Although this document has been carefully reviewed, there may still be some phonetic and typographical errors. These areas are purely typographical due to imperfections of the software programs, and do not reflect any compromise in the patient's medical care. Plan discussed with: Patient, Other ADIA MENDOSA MD July 01, 2024 20:03
--- NOTE | 2024-07-02 08:14 | DVHDS2 ---
Discharge Summary Date of Admission June 30, 2024 at 12:22 Date of Discharge: July 01, 2024 Admitting Diagnosis Left-sided headache Wounds: None Labs/Diagnostic Data: Laboratory Results Test 07/01/24 21:58 07/01/24 06:52 06/30/24 10:40 06/30/24 10:17 POC Glucose 102 mg/dl (70-106) White Blood Count 4.9 10^3/uL (4.4-10.8) Red Blood Count 4.79 10^6/uL (4.0-5.20) Hemoglobin 11.9 g/dL (12.2-16.2) Hematocrit 35.7 % (36.0-46.0) Mean Corpuscular Volume 74.6 fL (80.0-100.0) Mean Corpuscular Hemoglobin 24.9 pg (28.0-32.0) Mean Corpuscular Hemoglobin Concent 33.4 g/dL (32.0-36.0) Red Cell Distribution Width 15.3 % (11.8-14.3) Platelet Count 211 10^3/uL (140-450) Mean Platelet Volume 7.8 fL (6.9-10.8) Neutrophils (%) (Auto) 69.0 % (37.0-80.0) Lymphocytes (%) (Auto) 19.7 % (10.0-50.0) Monocytes (%) (Auto) 10.1 % (0.0-12.0) Eosinophils (%) (Auto) 0.8 % (0.0-7.0) Basophils (%) (Auto) 0.4 % (0.0-2.0) Neutrophils # (Auto) 3.4 10 ^3/uL (1.6-8.6) Lymphocytes # (Auto) 1.0 10 ^3/uL (0.4-5.4) Monocytes # (Auto) 0.5 10 ^3/uL (0-1.3) Eosinophils # (Auto) 0 10 ^3/uL (0-0.8) Basophils # (Auto) 0 10 ^3/uL (0-0.2) Nucleated Red Blood Cells 0.2 % Erythrocyte Sedimentation Rate 3 mm/hr (0-20) Sodium Level 141 mmol/L (136-145) Potassium Level 4.5 mmol/L (3.5-5.1) Chloride Level 105 mmol/L (98-107) Carbon Dioxide Level 29 mmol/L (20-31) Anion Gap 7 (5-15) Blood Urea Nitrogen 10 mg/dL (9-23) Creatinine 0.72 mg/dL (0.550-1.02) Glomerular Filtration Rate Calc 108 mL/min (>90) BUN/Creatinine Ratio 13.9 (10.0-20.0) Serum Glucose 86 mg/dL (74-106) Calcium Level 9.7 mg/dL (8.7-10.4) Total Bilirubin 0.7 mg/dL (0.2-1.0) Aspartate Amino Transferase (AST) 16 U/L (13-40) Alanine Aminotransferase (ALT) 20 U/L (7-40) Alkaline Phosphatase 59 U/L (46-116) Total Protein 6.5 g/dL (5.7-8.2) Albumin 4.1 g/dL (3.2-4.8) Plasma/Serum Blood Alcohol 5.5 mg/dL (<10) Urine Color Light-yellow (Yellow) Urine Clarity Clear (Clear) Urine pH 7.0 (5.0-9.0) Urine Specific [place] 1.019 (1.001-1.035) Urine Protein Negative (Negative) Urine Ketones Negative (Negative) Urine Blood Negative /uL (Negative) Urine Nitrite Negative (Negative) Urine Bilirubin Negative (Negative) Urine Urobilinogen 2 mg/dL (Negative) Urine Leukocyte Esterase Negative /uL (Negative) Urine RBC 2 /hpf (0 - 4) Urine Microscopic WBC 1 /HPF (0-5) Urine Squamous Epithelial Cells Few /hpf (<5) Urine Bacteria Few /hpf (None Seen) Urine Glucose Normal mg/dL (Normal) Hemoglobin A1c 5.1 % A1C (<5.7) Magnesium Level 2.0 mg/dL (1.6-2.6) Other Laboratory Tests 07/01/24 06:52 Brief Hx & Hospital Course: 39-year-old female with a history of alcohol abuse substance abuse hypertension diabetes history of gastric bypass came in for complaining of intractable headache and the left side also had some nausea vomiting patient has a history of migraines treated with the Zofran and morphine ESR is karolina. CT head negative .seen by Neurology Dr. Cornejo advised to continue management while awaiting further evaluation patient decided to leave AMA and left AMA. Consequences and complications explained to the patient and she verbalized understanding. Condition satisfactory at the time of leaving AMA per nurse's notes. Please note that while in the hospital patient was demanding Dilaudid. Consults/Reason for consult Neurology Operations or Procedures CT head Condition at Discharge: Fair Final Diagnosis/Problems List Intractable headache with nausea and vomiting : Zofran morphine Marijuana use Alcohol use Substance use Hypertension Diabetes History of gastric bypass Discharge Disposition: AMA Discharge Instruct/Medications Activity comment: Not applicable Patient left AMA Follow Up/Referral: Not applicable Patient left AMA Medications: Not applicable Patient left AMA 35 (Time taken for discharge summary 35 minutes) Discharge Statement: "Patient was advised to return to the ER or call 911 if any headaches, dizziness, shortness of breath, chest pain, abdominal pain, bleeding, fevers, or worsening of medical condition. Patient was counseled about treatment plan, medications, possible side effects, patient�verbalized understanding. All questions were answered to the best of my ability. This discharge took greater then 30 minutes in planning, reviewing documentation, counseling the patient, and discussing with other team members." ASSESSMENT ASSESSMENT Hospital Course Left AMA Assessment Date of Service: July 02, 2024 Billing Provider: DAVI BORRERO MD Common Visit Codes: [id number] DISCH DAY >30min DAVI BORRERO MD July 02, 2024 08:14
== END 2024-07-01 22:06 | disposition left against medical advice (07) | DRG 103 ==
LOC: ER 09:48 → OVERFLOW 12:22 → EAST 15:30
DX: G43.909 Migraine, unspecified, not intractable, without status migrainosus (principal); I10 Essential (primary) hypertension; E11.9 Type 2 diabetes mellitus without complications; F17.290 Nicotine dependence, other tobacco product, uncomplicated; F15.10 Other stimulant abuse, uncomplicated; Z96.611 Presence of right artificial shoulder joint; F10.10 Alcohol abuse, uncomplicated; Y90.9 Presence of alcohol in blood, level not specified; E66.9 Obesity, unspecified; Z53.29 Procedure and treatment not carried out because of patient's decision for other reasons; Z98.891 History of uterine scar from previous surgery; Z98.84 Bariatric surgery status; Z83.3 Family history of diabetes mellitus; Z82.49 Family history of ischemic heart disease and other diseases of the circulatory system; Z68.29 Body mass index [BMI] 29.0-29.9, adult
CPT/HCPCS: 36415; 70450; 80048; 80053; 80320; 81001; 82962; 83036; 83735; 85025; 85652; 96365; 96375; G0378; J1885; J2405